=== PATIENT | male | born 1990 | race African-American/Black ===

== ENCOUNTER 2017-04-01 09:52 | Emergency (ER) | payer MEDICAID ==
[~2017-04-01] VITALS: Ht 177.8 cm; Wt 75.0 kg
[2017-04-01 09:56] VITALS: BP 137/76
== END 2017-04-01 10:46 | disposition home or self-care (01) ==
LOC: ED 10:30
DX: S69.92XD Unspecified injury of left wrist, hand and finger(s), subsequent encounter (principal); X58.XXXD Exposure to other specified factors, subsequent encounter
CPT/HCPCS: 99281

== ENCOUNTER 2017-07-13 09:43 | Emergency (ER) | payer MEDICAID ==
[~2017-07-13] VITALS: Ht 177.8 cm; Wt 75.0 kg
[2017-07-13 09:46] VITALS: BP 137/90
== END 2017-07-13 10:23 | disposition home or self-care (01) ==
LOC: ED 10:00
DX: H66.001 Acute suppurative otitis media without spontaneous rupture of ear drum, right ear (principal)
CPT/HCPCS: 99283

== ENCOUNTER 2021-03-01 22:18 | Emergency (ER) | payer MEDICAID ==
[~2021-03-01] VITALS: Ht 175.3 cm; Wt 69.6 kg
[2021-03-01 22:19] VITALS: BP 127/70
== END 2021-03-01 23:29 | disposition home or self-care (01) ==
LOC: ED 22:30
DX: M79.671 Pain in right foot (principal); M79.672 Pain in left foot
CPT/HCPCS: 82962; 99282